=== PATIENT | female | born 1935 | race Caucasian/White ===

== ENCOUNTER → 2018-08-29 | Day surgery (SDC) | payer MEDICARE, MEDICAID ==
[~2018-08-29] VITALS: Ht 154.9 cm; Wt 77.1 kg
[~2018-08-29] MED LIST: FENTANYL CITRATE/PF 50MCG/ML 2ML VIAL ONE; FURO40TA5 MT; HEPARIN SODIUM 1,000 UNIT/1ML VIAL IV ONE; HYDR-4005 MT; IODIXANOL 320MG/ML 100 ML BOTTLE IV ONE; LIDOCAINE HCL 1% 20ML VIAL (Pyxis) INJ ONE; LOSA50TA3 MT; MIDAZOLAM HCL 2 MG/2 ML VIAL ONE; NICARDIPINE 100MCG/ML 10ML VIAL (CATH LAB) IV ONE; NITROGLYCERIN 50MCG/ML 10ML VIAL (CATH LAB) IV ONE; RIVA10TA MT
== END | disposition home or self-care (01) ==
LOC: CCL 06:42
PROVIDERS: ATTEND Specialist
DX: R07.89 Other chest pain (principal); R94.31 Abnormal electrocardiogram [ECG] [EKG]; I11.9 Hypertensive heart disease without heart failure; I48.2 Chronic atrial fibrillation; Z79.899 Other long term (current) drug therapy
CPT/HCPCS: 93458; 99152; 99153; C1769; C1887; C1893; J1644; J2250; J3010; J3490; Q9967; G0500